=== PATIENT | male | born 1980 | race African-American/Black ===

== ENCOUNTER → 2017-01-31 | Outpatient (CLI) | payer MEDICARE ==
[~2017-01-31] MED LIST: ACCUPRIL PO; ACETAMINOPHEN PO; AMOXICILLIN PO; APRESOLINE PO; ASPIRIN PO; ASPIRIN81 MG PO; CIPROFLOXACIN OS; CLONIDINE PO; COVERA HS PO; FOSRENOL PO; HYDRALAZINE HCL50 MG PO; LANTUS100 U/ML INJ; LANTUS100 U/ML SUBQ; LASIX PO; LEVEMIR100 UNITS/ SUBQ; LISINOPRIL PO; LOPRESSOR PO; METOPROLOL TAR100 MG PO; MYFORTIC180 MG PO; NORCO 5/325 TAB1 TAB PO; NORVASC PO; NOVOLIN 70/30 V10 ML SUBQ; NOVOLOG100 U/ML SUBQ; PANTOPRAZOLE SO40 MG PO; PATIENT'S PHARMACY; PREDNISONE5 M1 PO; PROGRAF1 MG PO; UNKNOWN ANTIBIOTIC; VICODIN 5/500 T1 TAB PO; ZANTAC PO; ZOLOFT PO
[2017-01-31 12:32] LABS: BASOPHIL% 0.4 % (0-2.5); EOSINOPHIL# 0.1 X10e3 (0-0.7); EOSINOPHIL% 1.2 % (0.0-7.0); HEMATOCRIT 46.8 % (38.0-50.0); HEMOGLOBIN 15.2 gm/dL (13.0-16.0); LYMPHOCYTE# 1.4 X10e3 (1.0-3.5); LYMPHOCYTE% 22.8 % (17.0-45.0); MEAN CELL VOLUME 90.4 FL (83-96); MEAN CORPUSCULAR HEMOGLOBIN 29.4 PG (28-34); MEAN CORPUSCULAR HGB CONC 32.5 g/dL (30-36); MEAN PLATELET VOLUME 6.8 FL (6.5-11.5); MONOCYTE# 0.7 X10e3 (0-1.0); MONOCYTE% 10.9 % (3.0-12.0); NEUTROPHIL% 64.7 % (40-75); PLATELET COUNT 180 X10e3 (140-420); RED BLOOD COUNT 5.18 X10e (3.90-5.60); RED CELL DISTRIBUTION WIDTH 14.4 % (11.0-15.5); WHITE BLOOD COUNT 6.2 X10e3 (4.0-10.5)
[2017-01-31 12:43] LABS: DIFF IND NO
[2017-01-31 13:17] LABS: ALBUMIN SERUM 4.8 g/dL (3.5-5.0); BILIRUBIN,TOTAL 0.6 mg/dL (0.2-2.0); BUN/CREATININE RATIO 10.76; CALCIUM SERUM 9.2 mg/dL (8.4-10.2); CREATININE SERUM 1.3 mg/dL (0.6-1.4); GLOM FILT RATE Estimated 80.8 mL/min (>60); POTASSIUM 3.6 mmol/L (3.5-5.1)
== END | disposition home or self-care (01) ==
LOC: STPL 11:30
PROVIDERS: Internal Medicine
DX: Z48.22 Encounter for aftercare following kidney transplant (principal); T45.1X1D Poisoning by antineoplastic and immunosuppressive drugs, accidental (unintentional), subsequent encounter; Z94.0 Kidney transplant status; Z79.899 Other long term (current) drug therapy
CPT/HCPCS: 36415; 80053; 80197; 85025

== ENCOUNTER → 2017-03-04 | Outpatient (CLI) | payer MEDICARE ==
[2017-03-04 10:05] LABS: BASOPHIL% 0.4 % (0-2.5); HEMATOCRIT 45.5 % (38.0-50.0); HEMOGLOBIN 14.8 gm/dL (13.0-16.0); LYMPHOCYTE# 1.5 X10e3 (1.0-3.5); LYMPHOCYTE% 32.1 % (17.0-45.0); MEAN CELL VOLUME 89.5 FL (83-96); MEAN CORPUSCULAR HEMOGLOBIN 29.1 PG (28-34); MEAN CORPUSCULAR HGB CONC 32.5 g/dL (30-36); MEAN PLATELET VOLUME 7.4 FL (6.5-11.5); MONOCYTE# 0.6 X10e3 (0-1.0); MONOCYTE% 11.9 % (3.0-12.0); NEUTROPHIL# 2.5 X10e3 (1.5-7.1); NEUTROPHIL% 54.6 % (40-75); PLATELET COUNT 186 X10e3 (140-420); RED BLOOD COUNT 5.09 X10e (3.90-5.60); RED CELL DISTRIBUTION WIDTH 13.8 % (11.0-15.5); WHITE BLOOD COUNT 4.7 X10e3 (4.0-10.5)
[2017-03-04 10:13] LABS: DIFF IND NO
[2017-03-04 10:44] LABS: ALBUMIN SERUM 4.7 g/dL (3.5-5.0); BILIRUBIN,TOTAL 0.8 mg/dL (0.2-2.0); CALCIUM SERUM 9.6 mg/dL (8.4-10.2); CREATININE SERUM 1.6 mg/dL (0.6-1.4); GLOM FILT RATE Estimated 62.9 mL/min (>60); POTASSIUM 3.9 mmol/L (3.5-5.1); PROTEIN TOTAL SERUM 8.1 g/dL (6.0-8.3)
== END | disposition home or self-care (01) ==
LOC: STPL 08:56
PROVIDERS: Internal Medicine
DX: Z48.22 Encounter for aftercare following kidney transplant (principal); T45.1X1D Poisoning by antineoplastic and immunosuppressive drugs, accidental (unintentional), subsequent encounter; Z13.1 Encounter for screening for diabetes mellitus; Z79.899 Other long term (current) drug therapy
CPT/HCPCS: 36415; 80053; 80197; 82465; 83036; 84478; 85025

== ENCOUNTER → 2017-04-13 | Outpatient (CLI) | payer MEDICARE ==
[2017-04-13 11:34] LABS: BASOPHIL% 0.5 % (0-2.5); EOSINOPHIL% 0.9 % (0.0-7.0); HEMATOCRIT 45.4 % (38.0-50.0); LYMPHOCYTE% 18.8 % (17.0-45.0); MEAN CELL VOLUME 88.9 FL (83-96); MEAN CORPUSCULAR HEMOGLOBIN 29.2 PG (28-34); MEAN CORPUSCULAR HGB CONC 32.9 g/dL (30-36); MEAN PLATELET VOLUME 7.2 FL (6.5-11.5); MONOCYTE# 0.5 X10e3 (0-1.0); MONOCYTE% 8.7 % (3.0-12.0); NEUTROPHIL# 3.7 X10e3 (1.5-7.1); NEUTROPHIL% 71.1 % (40-75); PLATELET COUNT 181 X10e3 (140-420); RED BLOOD COUNT 5.11 X10e (3.90-5.60); RED CELL DISTRIBUTION WIDTH 14.2 % (11.0-15.5); WHITE BLOOD COUNT 5.3 X10e3 (4.0-10.5)
[2017-04-13 11:53] LABS: ALBUMIN SERUM 4.8 g/dL (3.5-5.0); BILIRUBIN,TOTAL 1.4 mg/dL (0.2-2.0); BUN/CREATININE RATIO 13.84; CALCIUM SERUM 9.6 mg/dL (8.4-10.2); CREATININE SERUM 1.3 mg/dL (0.6-1.4); GLOM FILT RATE Estimated 80.8 mL/min (>60); PROTEIN TOTAL SERUM 8.3 g/dL (6.0-8.3)
[2017-04-13 11:54] LABS: DIFF IND NO
[2017-04-13 16:57] LABS: CREATININE,RANDOM URINE 321 mg/dL; TOTAL PROTEIN,RANDOM URINE 48 mg/dl (<10)
== END | disposition home or self-care (01) ==
LOC: STPL 11:03
PROVIDERS: Surgery
DX: Z48.22 Encounter for aftercare following kidney transplant (principal); T45.1X1D Poisoning by antineoplastic and immunosuppressive drugs, accidental (unintentional), subsequent encounter; Z79.899 Other long term (current) drug therapy
CPT/HCPCS: 36415; 80053; 80197; 82043; 82465; 82570; 84156; 84478; 85025; 87799